=== PATIENT | male | born 1995 | race Caucasian/White ===

== ENCOUNTER 2020-05-02 17:51 | Inpatient (IN) | payer BC ==
[2020-05-02] MEDS ORDERED: Ondansetron PF 4 MG/2 ML Vial ONE (19:38)
[2020-05-02 19:42] LABS: #Eosinphils 0.1 10x3/uL (0.0-0.5); #Monocytes 0.7 10x3/uL (0.0-1.1); #Neutrophils 15.1 10x3/uL (1.5-8.4); %Basophils 0.2 % (0.0-2.0); %Eosinophils 0.7 % (0.0-6.0); %Lymphocytes 3.9 % (18.0-47.0); %Monocytes 3.9 % (0.0-10.0); %Neutrophils 90.5 % (40.0-75.0); Hemoglobin 14.6 g/dL (13.5-17.5); Mean Corpuscular HGB CONC 33.1 g/dL (32.0-36.0); Mean Corpuscular Hemoglobin 29.4 pg (27.0-33.0); Mean Corpuscular Volume 88.9 fl (81.2-95.1); Mean Platelet Volume 9.7 fl (7.4-10.4); Platelet Count 310 10x3/uL (150-450); RBC Distribution Width 13.3 % (11.5-14.5); Red Blood Cell (RBC) Count 4.96 10x6/uL (4.32-5.72); White Blood Cell (WBC) Count 16.7 10x3/uL (3.5-10.5)
[2020-05-02] MEDS ORDERED: Dicyclomine 20 MG TAB ONE (19:43)
[2020-05-02 19:54] LABS: ALT (SGPT) 49 U/L (8-55); AST (SGOT) 22 U/L (5-34); Albumin 4.9 g/dL (3.5-5.0); Alkaline Phosphatase 96 U/L (40-110); Anion Gap 16 mmol/L (10-20); BUN (Urea Nitrogen) 26 mg/dL (8.9-20.6); Bilirubin, Total 0.4 mg/dL (0.2-1.2); Calc. Creatinine Clearance 0 mL/min (70-130); Calcium 9.4 mg/dL (7.8-10.44); Carbon Dioxide 23 mmol/L (22-29); Chloride 103 mmol/L (98-107); Globulin 3.8 g/dL (2.4-3.5); Glucose 115 mg/dL (70-105); Lipase 42 U/L (8-78); Potassium 4.9 mmol/L (3.5-5.1); Protein, Total 8.7 g/dL (6.0-8.3); Sodium 137 mmol/L (136-145)
[2020-05-02] MEDS ORDERED: Cefepime 2 GM VIAL ONE (23:53)
[2020-05-03] MEDS ORDERED: Ondansetron PF 4 MG/2 ML Vial IVP PRN
[2020-05-03] MEDS ORDERED: Ondansetron ODT 4 MG TAB PO PRN
[2020-05-03] MEDS: Sodium Chloride 0.9% 1,000 ML IV SCH ×3 (03:22→14:36)
[2020-05-03 03:29] VITALS: BMI 42.3
[2020-05-03 04:41] LABS: #Eosinphils 0.1 10x3/uL (0.0-0.5); #Monocytes 0.5 10x3/uL (0.0-1.1); %Basophils 0.2 % (0.0-2.0); %Eosinophils 0.7 % (0.0-6.0); %Lymphocytes 8.7 % (18.0-47.0); %Monocytes 4.9 % (0.0-10.0); %Neutrophils 85.1 % (40.0-75.0); Hemoglobin 11.1 g/dL (13.5-17.5); Mean Corpuscular HGB CONC 32.6 g/dL (32.0-36.0); Mean Corpuscular Hemoglobin 29.3 pg (27.0-33.0); Mean Platelet Volume 9.6 fl (7.4-10.4); Platelet Count 240 10x3/uL (150-450); RBC Distribution Width 13.6 % (11.5-14.5); Red Blood Cell (RBC) Count 3.79 10x6/uL (4.32-5.72); White Blood Cell (WBC) Count 10.5 10x3/uL (3.5-10.5)
[2020-05-03 04:46] LABS: Anion Gap 12 mmol/L (10-20)
[2020-05-03 04:48] LABS: BUN (Urea Nitrogen) 33 mg/dL (8.9-20.6); Calc. Creatinine Clearance 102 mL/min (70-130); Calcium 7.5 mg/dL (7.8-10.44); Carbon Dioxide 21 mmol/L (22-29); Chloride 107 mmol/L (98-107); Glucose 106 mg/dL (70-105); Magnesium 1.7 mg/dL (1.6-2.6); Potassium 4.3 mmol/L (3.5-5.1); Sodium 136 mmol/L (136-145)
[2020-05-03] MEDS: Acetaminophen 325 MG TAB PO PRN ×2 (05:00→14:36)
[2020-05-03] MEDS: predniSONE 10 MG TAB PO SCH (08:34)
[2020-05-03] MEDS: Tacrolimus 0.5 MG CAP PO SCH ×2 (08:34→20:06)
[2020-05-03] MEDS: Mycophenolate 250 MG CAP PO SCH ×2 (08:34→20:05)
[2020-05-03] MEDS ORDERED: FLU VACC QS2020-21(6MOS UP)/PF 60 MCG/0.5 ML SYRINGE IM ONE (21:00)
[2020-05-03] MEDS ORDERED: Prevnar 13-Val Conj/PF 0.5 ML SYRINGE IM ONE (21:00)
[2020-05-04] MEDS: Sodium Chloride 0.9% 1,000 ML IV SCH ×2 (04:14→10:01)
[2020-05-04 05:26] LABS: Anion Gap 12 mmol/L (10-20); BUN (Urea Nitrogen) 20 mg/dL (8.9-20.6); Calc. Creatinine Clearance 136 mL/min (70-130); Calcium 7.8 mg/dL (7.8-10.44); Carbon Dioxide 18 mmol/L (22-29); Chloride 112 mmol/L (98-107); Glucose 86 mg/dL (70-105); Magnesium 2.2 mg/dL (1.6-2.6); Potassium 4.2 mmol/L (3.5-5.1); Sodium 138 mmol/L (136-145)
[2020-05-04 05:27] LABS: #Eosinphils 0.3 10x3/uL (0.0-0.5); #Monocytes 0.8 10x3/uL (0.0-1.1); #Neutrophils 5.5 10x3/uL (1.5-8.4); %Basophils 0.2 % (0.0-2.0); %Eosinophils 3.5 % (0.0-6.0); %Lymphocytes 20.5 % (18.0-47.0); %Monocytes 9.2 % (0.0-10.0); Hemoglobin 10.4 g/dL (13.5-17.5); Mean Corpuscular HGB CONC 32.9 g/dL (32.0-36.0); Mean Corpuscular Hemoglobin 29.5 pg (27.0-33.0); Mean Corpuscular Volume 89.8 fl (81.2-95.1); Mean Platelet Volume 9.1 fl (7.4-10.4); Platelet Count 207 10x3/uL (150-450); RBC Distribution Width 13.9 % (11.5-14.5); Red Blood Cell (RBC) Count 3.52 10x6/uL (4.32-5.72); White Blood Cell (WBC) Count 8.3 10x3/uL (3.5-10.5)
[2020-05-04] MEDS: Tacrolimus 0.5 MG CAP PO SCH (08:46)
[2020-05-04] MEDS: Mycophenolate 250 MG CAP PO SCH (08:46)
[2020-05-04] MEDS: predniSONE 10 MG TAB PO SCH (08:46)
[2020-05-04 11:42] VITALS: BP 144/91; TEMP 97.7
[2020-05-06 11:37] LABS: Tacrolimus 1.5 ng/mL (2.0-20.0)
== END 2020-05-04 15:00 | disposition home or self-care (01) | DRG 699 ==
LOC: CSHERS 17:51 → CSHTELE 05-03 02:06 → OBSVTOIN 05-04 11:53
PROVIDERS: ADMIT Internal Medicine; ATTEND Internal Medicine
DX: T86.19 Other complication of kidney transplant (principal); N17.9 Acute kidney failure, unspecified; E86.0 Dehydration; I95.9 Hypotension, unspecified; A08.4 Viral intestinal infection, unspecified; N05.6 Unspecified nephritic syndrome with dense deposit disease; Z88.1 Allergy status to other antibiotic agents; I10 Essential (primary) hypertension; Z79.52 Long term (current) use of systemic steroids; Z79.899 Other long term (current) drug therapy; D89.9 Disorder involving the immune mechanism, unspecified
CPT/HCPCS: 36415; 74176; 80048; 80053; 80197; 83605; 83690; 83735; 85025; 87040; 96365; 96372; 96375; G0378; J0500; J0692; J2405; J7050; J7507; J7512; J7517; P9045